=== PATIENT | male | born 1955 | race Caucasian/White ===

== ENCOUNTER 2018-03-10 16:25 | Emergency (ER) | payer MEDICAID ==
[2018-03-10 17:26] VITALS: RESP 20; TEMP 98.1
--- NOTE | 2018-03-10 19:46 | C.PDOC ---
History Of Present Illness <Prakash Conti R - Last Filed: 03/10/18 21:13> <Hector Randle N - Last Filed: 03/11/18 01:15> Mr Snell is a 62 year old male with a PMHx of DM and HTN who presented to the ER complaining of room spinning sensation that's been ongoing for the last 2 days. He states turning his head to the right or left quickly causes him dizziness. He states he's never had this happen to him before. He states he came to the ER today because he was on the bus earlier today where he became so dizzy and nauseous that he felt as if he was going to fall over. He also complained of feeling bloated - he stated he saw his PMD, Dr Lisa Emery recently who prescribed his medicine for the bloating which helped a little. He denies bloody or black stools or bloody emesis. He states he has a EGD and colonoscopy scheduled in 2 weeks. PMD: Dr Lisa Emery PMHx: DM, HTN PSHx: denies All: denies SocialHx: smoked 10 cigs a day for 45 years - quit 3 months ago; denies alcohol or illicit drug use (Prakash Conti) History Per: Patient History/Exam Limitations: no limitations Onset/Duration Of Symptoms: Days (2) Current Symptoms Are (Timing): Still Present Activity At Onset Of Symptoms: Change In Head Position Associated Symptoms Preceding Syncopal Episode: Vertigo Worse With Change In Head Position Possible Causative Factor(s): Vertigo Fall Associated With With Symptoms: No Severity: Mild Pain Scale Rating Of: 0 Recent travel outside of the [place]: No - Symptoms Of CVA Recent Aspirin Use: No Current Coumadin Use?: No Recent Head Trauma: No <Prakash Conti R - Last Filed: 03/10/18 21:13> <Hector Randle N - Last Filed: 03/11/18 01:15> Time Seen by Provider: 03/10/18 17:32 Chief Complaint (Nursing): Dizziness/Lightheaded Past Medical History - Medical History PMH: Diabetes, HTN Surgical History: No Surg Hx Family History: States: Unknown Family Hx - Social History Hx Tobacco Use: Yes (half a pack a day for 45 years; quit 3 months ago) Hx Alcohol Use: No Hx Substance Use: No - Immunization History Hx Tetanus Toxoid Vaccination: No Hx Influenza Vaccination: No Hx Pneumococcal Vaccination: No <Prakash Conti - Last Filed: 03/10/18 21:13> Vital Signs: Last Vital Signs Temp 98.1 F 03/10/18 16:30 Pulse 70 03/10/18 20:28 Resp 20 03/10/18 20:28 BP 118/80 03/10/18 20:28 Pulse Ox 100 03/10/18 21:13 Review Of Systems Constitutional: Negative for: Fever, Chills, Weakness Cardiovascular: Negative for: Chest Pain, Palpitations Respiratory: Negative for: Cough, SOB with Excertion Gastrointestinal: Positive for: Nausea. Negative for: Vomiting, Diarrhea, Constipation Genitourinary: Negative for: Dysuria Neurological: Positive for: Dizziness <Prakash Conti R - Last Filed: 03/10/18 21:13> Physical Exam - Physical Exam Appears: Well, Non-toxic Skin: Normal Color Head: Atraumatic, Normacephalic Eye(s): bilateral: Normal Inspection, PERRL, EOMI Nose: Normal Oral Mucosa: Moist Tongue: Normal Appearing Lips: Normal Appearing Neck: Normal, Normal ROM Chest: Symmetrical Cardiovascular: Rhythm Regular, No Murmur, No JVD Respiratory: Normal Breath Sounds Gastrointestinal/Abdominal: Normal Exam, Soft, No Tenderness Neurological/Psych: Oriented x3, Normal Speech, Normal Cognition <Prakash Conti R - Last Filed: 03/10/18 21:13> <Hector Randle N - Last Filed: 03/11/18 01:15> - Physical Exam Additional Physical Exam Comments: [facility] positive for nystagmus (rightward shift) (Prakash Conti) ED Course And Treatment - Laboratory Results Result Diagrams: 03/10/18 20:02 03/10/18 20:02 O2 Sat by Pulse Oximetry: 100 Progress Note: Patient re-evaluated at 21:03 and stated his dizziness was better but still present with head movement. Reevaluation Time: 21:03 Reassessment Condition: Improved <Prakash Conti - Last Filed: 03/10/18 21:13> - Laboratory Results Result Diagrams: 03/10/18 20:02 03/10/18 20:02 <Hector Randle - Last Filed: 03/11/18 01:15> Medical Decision Making <Prakash Conti - Last Filed: 03/10/18 21:13> <Hector Randle - Last Filed: 03/11/18 01:15> Medical Decision Making: ekg-nsr rate 78 pr-178 qrs-96 [id number]/qtc-414/471 no ischemic changes (Hector Randle N) Disposition <Prakash Conti R - Last Filed: 03/10/18 21:13> Doctor Will See Patient In The: Office Counseled Patient/Family Regarding: Diagnosis, Need For Followup <Hector Randle - Last Filed: 03/11/18 01:15> - Disposition Referrals: [facility] [Outside] [facility] [Outside] [facility] [place] [Outside] Disposition: HOME/ ROUTINE Condition: GOOD Additional Instructions: return if symptoms worsen Prescriptions: Meclizine [Meclizine*] 50 mg PO TID PRN 3 Days #3 tab PRN Reason: Dizziness Forms: [facility] (Hong [place]er) - Clinical Impression Clinical Impression: Dizziness, Vertigo
[2018-03-10 20:05] LABS: BASO % 0.6 % (0.0-2.0); EOS # 0.1 K/uL (0.0-0.7); EOS % 2.3 % (0.0-4.0); LYMPH # 1.1 K/uL (1.0-4.3); LYMPH % 16.9 % (20.0-40.0); MEAN CELL VOLUME 64.6 fL (80.0-94.0); MEAN CORPUSCULAR HEMOGLOBIN 19.8 pg (27.0-31.0); MEAN CORPUSCULAR HGB CONC 30.7 g/dL (33.0-37.0); MEAN PLATELET VOLUME 9.2 fL (7.2-11.7); MONO # 0.7 K/uL (0.0-0.8); MONO % 11.3 % (0.0-10.0); NEUT # 4.5 K/uL (1.8-7.0); NEUT % 68.9 % (50.0-75.0); RBC 4.52 Mil/uL (4.40-5.90); RED CELL DISTRIBUTION WIDTH 17.8 % (11.5-14.5); WHITE BLOOD COUNT 6.5 K/uL (4.8-10.8)
[2018-03-10 20:17] LABS: ALB/GLOB RATIO 1.2 (1.0-2.1); ALT/SGPT 15 U/L (21-72); AST/SGOT 14 U/L (17-59); BLOOD UREA NITROGEN 15 mg/dL (9-20); CALCIUM 9.2 mg/dl (8.6-10.4); GFR AFRICAN-AMERICAN > 60; GFR NON-AFRICAN AMERICAN > 60
[2018-03-10 20:28] VITALS: BP 118/80; PULSE 70
[2018-03-10 21:05] VITALS: O2SAT 100
--- NOTE | 2018-03-11 12:37 | CARD ---
APPROVED REPORT EKG Measurement Heart [id number] <Conclusion> Normal sinus rhythm Normal ECG
== END 2018-03-10 22:28 | disposition home or self-care (01) ==
LOC: C.ER 16:25
DX: R42 Dizziness and giddiness (principal); I10 Essential (primary) hypertension; E11.9 Type 2 diabetes mellitus without complications; Z87.891 Personal history of nicotine dependence
CPT/HCPCS: 80053; 82948; 85025; 93005; 96374; 99285; J2405

== ENCOUNTER 2018-05-27 17:14 | Emergency (ER) | payer MEDICAID ==
[2018-05-27 17:30] VITALS: PULSE 68
[2018-05-27 19:10] LABS: ALB/GLOB RATIO 1.3 (1.0-2.1); ALBUMIN 4.4 g/dL (3.5-5.0); ALT/SGPT 23 U/L (21-72); AST/SGOT 15 U/L (17-59); BLOOD UREA NITROGEN 12 mg/dL (9-20); CALCIUM 9.5 mg/dl (8.6-10.4); GFR AFRICAN-AMERICAN > 60; GFR NON-AFRICAN AMERICAN > 60
--- NOTE | 2018-05-27 19:35 | C.PDOC ---
History Of Present Illness 62 y/o male sent to ED by Dr. Goode for evaluation for dizziness and tinnitus that began few days ago. Patient currently denies dizziness or any other physical complaints. Patient has a Hx of left eye surgery removal. Dr. Goode requesting CT head and CT Temporal bone. Chief Complaint (Nursing): Dizziness/Lightheaded History Per: Patient History/Exam Limitations: no limitations Onset/Duration Of Symptoms: Days Current Symptoms Are (Timing): Still Present Associated Symptoms Preceding Syncopal Episode: No Predromal Symptoms (Sudden Onset) Seizure Or Post-ictal Symptoms: None Fall Associated With With Symptoms: No Recent travel outside of the [place]: No - Symptoms Of CVA Associated Symptoms: denies: Impaired Speech, Seizure Activity, New Vision Deficit(Left), New Vision Deficit(Right), Decreased Ability To Walk, New Confusion Recent Aspirin Use: Unknown Current Coumadin Use?: Unknown Recent Head Trauma: No Past Medical History Reviewed: Historical Data, Nursing Documentation, Vital Signs Vital Signs: Last Vital Signs Temp 97.6 F 05/27/18 20:58 Pulse 68 05/27/18 20:58 Resp 16 05/27/18 20:58 BP 139/88 05/27/18 20:58 Pulse Ox 98 05/27/18 20:59 - Medical History PMH: Diabetes, HTN Family History: States: Unknown Family Hx - Social History Hx Tobacco Use: Yes (half a pack a day for 45 years; quit 3 months ago) Hx Alcohol Use: No Hx Substance Use: No - Immunization History Hx Tetanus Toxoid Vaccination: No Hx Influenza Vaccination: No Hx Pneumococcal Vaccination: No Review Of Systems Constitutional: Negative for: Fever, Chills Gastrointestinal: Negative for: Nausea, Vomiting, Abdominal Pain, Diarrhea Skin: Negative for: Rash Neurological: Negative for: Weakness, Numbness, Dizziness Physical Exam - Physical Exam Appears: Non-toxic, No Acute Distress Skin: Normal Color, Warm, Dry, No Rash Head: Atraumatic, Normacephalic Eye(s): bilateral: Other (Prosthetic left eye; Right eye mild sticking strabismus lateral) Ear(s): Bilateral: Normal Oral Mucosa: Moist Neck: Supple Chest: Symmetrical, No Tenderness Cardiovascular: Rhythm Regular, No Murmur Respiratory: Normal Breath Sounds, No Decreased Breath Sounds, No Rales, No Rhonchi, No Wheezing Gastrointestinal/Abdominal: Soft, No Tenderness, No Distention Extremity: Normal ROM, No Deformity Extremity: Bilateral: Atraumatic, Normal Color And Temperature, Normal ROM Pulses: Left Radial: Normal, Right Radial: Normal Neurological/Psych: Oriented x3, Normal Speech, Normal Motor, Normal Sensation, Normal Reflexes, Other (No focal deficits ) Gait: Steady ED Course And Treatment - Laboratory Results Result Diagrams: 05/27/18 19:42 05/27/18 18:47 Lab Interpretation: Abnormal (+ microcytic anemia, mild, UA neg.) ECG: Interpreted By Me ECG Rhythm: Sinus Rhythm ECG Interpretation: Normal Rate From EC O2 Sat by Pulse Oximetry: 98 (RA) Pulse Ox Interpretation: Normal - Radiology CXR: Interpreted by Me CXR Interpretation: Yes: No Acute Disease - CT Scan/US CT Head Other Rad Studies (CT/US): Read By Radiologist, Radiology Report Reviewed CT/US Interpretation: IMPRESSION: Mild involutional changes. Mild periventricular hypoattenuation suggestive of chronic ischemic changes. CT IAC Other Rad Studies (CT/US): Read By Radiologist, Radiology Report Reviewed CT/US Interpretation: IMPRESSION: Trace maxillary sinus mucosal thickening. Reevaluation Time: 20:58 Reassessment Condition: Unchanged (remains asymptomatic) - Physician Consult Information Outcome Of Conversation: 2100: d/w Dr. Goode, ENT- ok to d/c home with opt f/u. Medical Decision Making Medical Decision Making: Ordered CT Head and IAC, EKG, CXR, blood work and urinalysis. asymptomatic today normal w/u and CT's of head/Temporal bones mild microcytic anemia- refer to PMD for GI w/u. Disposition Doctor Will See Patient In The: Office Counseled Patient/Family Regarding: Studies Performed, Diagnosis - Disposition Referrals: Alistair Goode MD [Staff Provider] - Lisa Emery MD [Staff Provider] - Disposition: HOME/ ROUTINE Disposition Time: 20:59 Condition: GOOD Additional Instructions: normal neuro eval today Hgb 10 microcytic- iron deficiency anemia consider referral to GI for further w/u. Instructions: Anemia Caused by Low Iron, Adult (DC), Dizziness, Nonvertigo, (DC ) Forms: [facility] (Upper Sorbian) - Clinical Impression Clinical Impression: Dizziness, Iron deficiency anemia - Scribe Statement The provider has reviewed the documentation as recorded by the Scribe Supriya Waggonerk All medical record entries made by the Jodie were at my direction and personally dictated by me. I have reviewed the chart and agree that the record accurately reflects my personal performance of the history, physical exam, medical decision making, and the department course for this patient. I have also personally directed, reviewed, and agree with the discharge instructions and disposition.
[2018-05-27 19:48] LABS: BASO % 0.4 % (0.0-2.0); EOS # 0.2 K/uL (0.0-0.7); HEMOGLOBIN 10.4 g/dL (12.0-18.0); LYMPH # 2.6 K/uL (1.0-4.3); LYMPH % 38.3 % (20.0-40.0); MEAN CELL VOLUME 66.1 fL (80.0-94.0); MEAN CORPUSCULAR HEMOGLOBIN 20.5 pg (27.0-31.0); MEAN PLATELET VOLUME 8.7 fL (7.2-11.7); MONO # 0.9 K/uL (0.0-0.8); MONO % 12.8 % (0.0-10.0); NEUT # 3.1 K/uL (1.8-7.0); NEUT % 45.5 % (50.0-75.0); NRBC % 0.1 % (0.0-2.0); RBC 5.09 Mil/uL (4.40-5.90); RED CELL DISTRIBUTION WIDTH 20.6 % (11.5-14.5); WHITE BLOOD COUNT 6.8 K/uL (4.8-10.8)
[2018-05-27 19:57] LABS: URINE BILIRUBIN NEGATIVE (NEGATIVE); URINE BLOOD NEGATIVE (NEGATIVE); URINE CLARITY Clear (Clear); URINE COLOR Yellow (YELLOW); URINE GLUCOSE (UA) NORMAL (Normal); URINE LEUKOCYTE ESTERASE NEG Leu/uL (Negative); URINE PROTEIN NEGATIVE (NEGATIVE); URINE UROBILINOGEN NORMAL mg/dL (0.2-1.0)
[2018-05-27 21:39] VITALS: BP 143/85; RESP 18; TEMP 97.9; O2SAT 97
--- NOTE | 2018-05-28 05:33 | CT ---
Date of service: 05/27/2018 PROCEDURE: CT HEAD WITHOUT CONTRAST. HISTORY: dizziness, occasional, not now COMPARISON: None available. TECHNIQUE: Axial computed tomography images were obtained through the head/brain without intravenous contrast. Radiation dose: Total exam DLP = 755.85 mGy-cm. This CT exam was performed using one or more of the following dose reduction techniques: Automated exposure control, adjustment of the mA and/or kV according to patient size, and/or use of iterative reconstruction technique. FINDINGS: HEMORRHAGE: No intracranial hemorrhage. BRAIN: No mass effect or edema. Mild volume loss and dygc-tj-mipczqvh white matter changes suggestive but nonspecific for chronic microvascular ischemic disease. Focal hypodensity at the right lentiform nucleus may represent subacute or chronic lacunar infarction. VENTRICLES: Unremarkable. No hydrocephalus. CALVARIUM: Unremarkable. PARANASAL SINUSES: Unremarkable as visualized. No significant inflammatory changes. MASTOID AIR CELLS: Unremarkable as visualized. No inflammatory changes. OTHER FINDINGS: Deformity of is noted likely due to prior trauma or surgery. IMPRESSION: No evidence of acute intracranial hemorrhage intracranial collection mass effect or midline shift. Mild atrophy and gxpa-[id number] white matter changes suggestive of chronic microvascular ischemic disease. Possible subacute or chronic lacunar infarction at the right basal ganglia. Preliminary report was submitted but [facility]
--- NOTE | 2018-05-28 05:59 | CT ---
Date of service: 05/27/2018 PROCEDURE: CT OF THE TEMPORAL BONES WITHOUT CONTRAST HISTORY: dizziness COMPARISON: None available. TECHNIQUE: High resolution axial images of the temporal bones were obtained. Coronal and sagittal reformats were generated. Radiation dose: Total exam DLP = 740.07 mGy-cm. This CT exam was performed using one or more of the following dose reduction techniques: Automated exposure control, adjustment of the mA and/or kV according to patient size, and/or use of iterative reconstruction technique. FINDINGS: RIGHT TEMPORAL BONE: RIGHT MIDDLE EAR: Normal. RIGHT INNER EAR: Cochlea: Normal. Semicircular canals: Normal. RIGHT MASTOID AIR CELLS: No CT evidence of acute pathology. RIGHT INTERNAL AUDITORY CANAL: No CT evidence of acute pathology or destructive bony lesion. RIGHT EXTERNAL AUDITORY CANAL: Normal. RIGHT VESTIBULAR AND COCHLEAR AQUEDUCT: Normal. OTHER FINDINGS: None. LEFT TEMPORAL BONE: LEFT MIDDLE EAR: No CT evidence of acute pathology or destructive bony lesion. LEFT INNER EAR: Cochlea: Normal. Semicircular canals: Normal. LEFT MASTOID AIR CELLS: Normal. LEFT INTERNAL AUDITORY CANAL: Normal. LEFT EXTERNAL AUDITORY CANAL: Normal. LEFT VESTIBULAR AND COCHLEAR AQUEDUCTS: Normal. OTHER FINDINGS: None. IMPRESSION: Trace maxillary in sinuses mucosal thickening. No CT evidence of acute pathology or destructive bony lesion in the temporal bones. Preliminary report was submitted by [facility].
--- NOTE | 2018-05-28 08:41 | RAD ---
Date of service: 05/27/2018 HISTORY: dizz COMPARISON: No prior. TECHNIQUE: Chest PA and lateral FINDINGS: LUNGS: Initial changes appear somewhat prominent to may reflect an element of interstitial pulmonary disease, acute or chronic. No alveolitis bilaterally. PLEURA: No significant pleural effusion identified. No pneumothorax apparent. CARDIOVASCULAR: Normal. OSSEOUS STRUCTURES: No significant abnormalities. VISUALIZED UPPER ABDOMEN: Normal. OTHER FINDINGS: None. IMPRESSION: Potential interstitial pulmonary disease though mild. This could be acute or chronic however no alveolar changes are appreciated to suggest lobar pneumonia. No acute cardiovascular changes.
--- NOTE | 2018-05-28 11:43 | CARD ---
APPROVED REPORT Date of service: 05/27/2018 EKG Measurement Heart [id number] <Conclusion> Normal sinus rhythm Normal ECG
== END 2018-05-27 21:39 | disposition home or self-care (01) ==
LOC: C.ER 17:14
DX: R42 Dizziness and giddiness (principal); D50.9 Iron deficiency anemia, unspecified